=== PATIENT | male | born 1970 | race Caucasian/White ===

== ENCOUNTER 2018-03-29 17:21 | Emergency (ER) | payer OTHER ==
[~2018-03-29] VITALS: Ht 188 cm; Wt 117.9 kg
== END 2018-03-29 23:30 | disposition home or self-care (01) ==
LOC: ER 17:21
DX: S67.192A Crushing injury of right middle finger, initial encounter (principal); S62.632A Displaced fracture of distal phalanx of right middle finger, initial encounter for closed fracture; S61.212A Laceration without foreign body of right middle finger without damage to nail, initial encounter; Z87.891 Personal history of nicotine dependence; X58.XXXA Exposure to other specified factors, initial encounter; W23.1XXA Caught, crushed, jammed, or pinched between stationary objects, initial encounter
CPT/HCPCS: 12002; 99283-25

== ENCOUNTER 2020-04-14 08:28 | Emergency (ER) | payer OTHER ==
[~2020-04-14] VITALS: Ht 188 cm; Wt 124.7 kg
[2020-04-14] MEDS ORDERED: Monodox100 MG PO (10:15)
== END 2020-04-14 10:30 | disposition home or self-care (01) ==
LOC: ER 08:28
DX: L03.316 Cellulitis of umbilicus (principal); Z87.891 Personal history of nicotine dependence
CPT/HCPCS: 76705; 99283-25

== ENCOUNTER 2021-12-12 17:45 | Observation (INO) | payer OTHER ==
[~2021-12-12] VITALS: Ht 185.4 cm; Wt 128.0 kg
[~2021-12-12 17:45] MED LIST: Monodox100 MG PO
[2021-12-12 18:28] LABS: BASOPHILS ABSOLUTE AUTO 0.11 K/mm3 (0.00-0.23); BASOPHILS PERCENT AUTO 1 % (0-2); EOSINOPHILS ABSOLUTE AUTO 0.09 K/mm3 (0.00-0.68); EOSINOPHILS PERCENT AUTO 1 % (0-6); Hematocrit 50.4 % (37.0-53.0); Hemoglobin 17.1 g/dL (13.5-17.5); IMMATURE GRAN ABSOLUTE AUTO 0.04 K/mm3 (0.00-0.10); IMMATURE GRAN PERCENT AUTO 0 % (0-1); LYMPHOCYTES ABSOLUTE AUTO 1.91 K/mm3 (0.84-5.20); LYMPHOCYTES PERCENT AUTO 21 % (21-46); MONOCYTES ABSOLUTE AUTO 0.79 K/mm3 (0.16-1.47); MONOCYTES PERCENT AUTO 9 % (4-13); Mean Corpuscular HGB 29.7 pg (26.0-34.0); Mean Corpuscular HGB Conc 33.9 g/dL (31.5-36.5); Mean Corpuscular Volume 88 fL (80-100); NEUTROPHILS ABSOLUTE AUTO 6.08 K/mm3 (1.96-9.15); NEUTROPHILS PERCENT AUTO 67 % (41-73); Platelet Count 206 K/mm3 (150-400); RDW Coefficient Variation 12.5 % (11.7-14.2); RDW Standard Deviation 40.2 fL (35.1-46.3); Red Blood Cell Count 5.75 M/mm3 (4.30-5.90); White Blood Cell Count 9.02 K/mm3 (4.00-11.30)
[2021-12-12 18:43] LABS: Alanine Aminotransfer (ALT/SGP 84 U/L (12-78); Albumin, Blood 3.7 g/dL (3.4-5.0); Albumin/Globulin Ratio 1.1 (0.8-1.8); Alk Phos 52 U/L (50-136); Anion Gap 6 mmol/L (6-16); Aspartate Aminotrans (AST/SGOT 59 U/L (12-37); Bilirubin, Total 0.9 mg/dL (0.1-1.0); Blood Urea Nitrogen 14 mg/dL (8-24); Bun/Creatinine Ratio 17.7 (12.0-20.0); CO2, Blood 27 mmol/L (21-32); Calcium, Blood 8.5 mg/dL (8.5-10.1); Chloride, Blood 108 mmol/L (98-108); Creatinine, Blood 0.79 mg/dL (0.60-1.20); Globulin, Blood 3.5 g/dL (2.2-4.0); Glomerular Filtration Rate >60 (60-); Glucose, Blood 144 mg/dL (70-99); Potassium, Blood 3.5 mmol/L (3.5-5.5); Sodium, Blood 141 mmol/L (136-145); Total Protein, Blood 7.2 g/dL (6.4-8.2)
[2021-12-12] MEDS ORDERED: BENADRYL25 MG PO (21:54)
--- NOTE | 2021-12-13 05:51 | NUR ---
PT ADMITTED APPROXIMATELY 2130 W/ FRACTURED RIGHT #1 RIB, BRUISE AND ABRASION TO LEFT MAX, AND PROXIMAL TO R. ELBOW, AND ABRASION TO FOREHEAD. PAIN REPORTS ADEQUATE PAIN CONTROL PER EMAR. ELEVETAED SHALLOW RESPIRATIONS DURING THE EVENING 24-26, EDUCATED ON INCENTIVE SPIROMETER USE. ELEVATED BLOOD PRESSURE THAT IS CONSISTANT WITH PATIENT'S REPORTED BASELINE. PT IS UNDER OBSERVAION FOR AN EPISODE OF HYPOXEMIA: AROUND 84% O2 SAT, WHILE THE PATIENT WAS SITTING UP IN THE ER. PATENT IS COOPERATIVE WITH CARE AND RECEPTIVE TOWARDS INTERVENTIONS. WILL CONTINUE TO MONITOR UNTIL REPORT GIVEN TO THE NEXT SHIFT.
--- NOTE | 2021-12-13 09:43 | NUR ---
PT ABLE TO AMBULATE TO RESTROOM, HAS SIGNIFICANT INCREASE IN PAIN TO R HIP NEAR ILIAC CREST. NO BRUISING NOTED ON SKIN BUT TENDER TO TOUCH. PATIENT USES THIS RN AND FURNITURE TO AMBULATE. PAIN DECREASES QUICKLY ONCE PATIENT IS SAT DOWN. DIFFICULTY WITH SITTING DOWN TO LOW LEVEL OF TOILET SEAT. BUT REPORTS ABLE. PAIN WITH USING RIGHT ARM RELATED TO HIS UPPER RIB FRACTURE. REMAINS ABLE TO TAKE VERY DEEP BREATHS.
[2021-12-13] MEDS ORDERED: HYDR1TAB94 PO (10:30)
--- NOTE | 2021-12-13 11:14 | NUR ---
DISCHARGE PT LEFT VIA WHEELCHAIR. PAIN MUCH IMPROVED THIS AFTERNOON ONCE HE FELT "LOOSENED UP". PT EXCITED TO GO HOME. HE CONTINUES TO DEEP BREATH, AND USING ICE PACKS. IV REMOVED. PATIENT TOLERATING PO WELL. DENIED FUTHER QUESTIONS AT THIS TIME. ALL BELONGINGS SENT WITH PATIENT.
== END 2021-12-13 11:09 | disposition home or self-care (01) ==
LOC: ER 17:45 → SURS 17:46
PROVIDERS: Emergency Medicine; ADMIT Surgery
DX: S22.31XA Fracture of one rib, right side, initial encounter for closed fracture (principal); S80.12XA Contusion of left lower leg, initial encounter; S00.81XA Abrasion of other part of head, initial encounter; M50.323 Other cervical disc degeneration at C6-C7 level; I67.2 Cerebral atherosclerosis; R40.2412 Glasgow coma scale score 13-15, at arrival to emergency department; M25.551 Pain in right hip; V89.2XXA Person injured in unspecified motor-vehicle accident, traffic, initial encounter; E66.9 Obesity, unspecified; R09.02 Hypoxemia
CPT/HCPCS: 36415; 70450; 71045; 71260; 72125; 73130; 73590; 74177; 80053; 83690; 84484; 85025; 93005; 93010; 94762; A9270; J1650; J1885; J2270; J3010; Q9967